=== PATIENT | male | born 1970 | race Caucasian/White ===

== ENCOUNTER 2019-05-31 04:00 | Emergency (ER) | payer OTHER, SELFPAY ==
[~2019-05-31] VITALS: Ht 177.8 cm; Wt 93.2 kg
[2019-05-31 04:04] VITALS: BP 148/94
[2019-05-31] MEDS ORDERED: ATOR20TA PO (04:09)
[2019-05-31] MEDS ORDERED: LOSA50TA14 PO (04:09)
[2019-05-31] MEDS ORDERED: ALBUTEROL MDI (04:09)
[2019-05-31] MEDS ORDERED: CEFTRIAXONE 250 MG IM ONE (06:00)
[2019-05-31] MEDS ORDERED: AZITHROMYCIN 500 MG TABLET PO ONE (06:00)
[2019-05-31] MEDS ORDERED: KETOROLAC 30 MG/1 ML IM ONE (06:30)
[2019-05-31] MEDS ORDERED: KETOROLAC 30 MG/1 ML ONE (06:31)
--- NOTE | 2019-05-31 06:46 | NUR ---
Recieved report from STEPHEN Cast. All questions answered. Assuming care of pt at this time.
--- NOTE | 2019-05-31 07:03 | NUR ---
Patient given discharge instructions and they have confirmed that they understand the instructions. Patient ambulatory with steady gait. NADN. No obvious defecits observed. Pt left with d/c paper work, prescription, and all personal belongings.
== END 2019-05-31 07:05 | disposition home or self-care (01) ==
LOC: ED 04:58
DX: S20.212A Contusion of left front wall of thorax, initial encounter (principal); I10 Essential (primary) hypertension; E78.00 Pure hypercholesterolemia, unspecified; J44.9 Chronic obstructive pulmonary disease, unspecified; F17.210 Nicotine dependence, cigarettes, uncomplicated; Z90.49 Acquired absence of other specified parts of digestive tract; W01.0XXA Fall on same level from slipping, tripping and stumbling without subsequent striking against object, initial encounter; Y93.89 Activity, other specified; Y92.89 Other specified places as the place of occurrence of the external cause; Y99.8 Other external cause status
CPT/HCPCS: 71046; 93005; 96372; 99283; J1885

== ENCOUNTER 2021-01-10 09:55 | Emergency (ER) | payer MEDICAID, OTHER ==
[~2021-01-10] VITALS: Ht 177.8 cm; Wt 83.9 kg
[~2021-01-10 09:55] MED LIST: ALBUTEROL MDI; ATOR20TA PO; LOSA50TA14 PO
--- NOTE | 2021-01-10 10:36 | NUR ---
PT REPORTS HE WAS DX WITH LIVER CIRRHOSIS IN OCTOBER OF THIS YEAR AND HAS HAD TO GET [facility] SINCE THEN. REPORTS HE WENT TO [facility] THIS SATURDAY FOR PARACENTESIS BUT THEY WERE UNABLE TO DO IT. SEVERELY ASCITIC, MILDLY SOB, ANXIOUS. HR 110s. DENIES OTHER MEDICAL HX. ERP AT BS NOW.
[2021-01-10] MEDS ORDERED: SODIUM CHLORIDE FLUSH 10ML SYR IVF ONE (11:00)
[2021-01-10 11:21] LABS: BASOPHILS % (AUTO) 1 % (0-1); EOSINOPHILS % (AUTO) 1 % (1-7); LYMPHOCYTES % (AUTO) 18 % (22-44); MEAN CORPUSCULAR HEMOGLOBIN 30.8 pg (27.5-34.5); MEAN CORPUSCULAR HGB CONC 34.2 g/dL (33.2-36.2); MEAN PLATELET VOLUME 6.7 fL (7.4-10.4); MONOCYTES % (AUTO) 11 % (2-9); NEUTROPHILS % (AUTO) 70 % (42-75); PLATELET COUNT 204 x10^3/uL (130-400); RED BLOOD COUNT 3.75 x10^6/uL (4.38-5.82); RED CELL DISTRIBUTION WIDTH 18.1 % (9.4-14.8)
[2021-01-10 11:23] LABS: ALANINE AMINOTRANSFERASE 35 U/L (12-78); ANION GAP 9 mmol/L (5-15); CHLORIDE 98 mmol/L (98-107)
[2021-01-10 11:24] LABS: INTERNATIONAL NORMALIZED RATIO 1.21 (0.93-1.1); PROTHROMBIN TIME 12.9 Seconds (9.6-11.5)
[2021-01-10 11:26] LABS: ALKALINE PHOSPHATASE 111 U/L (45-117); CREATININE 0.67 mg/dL (0.7-1.3); TOTAL PROTEIN 7.2 g/dL (6.4-8.2)
--- NOTE | 2021-01-10 11:49 | NUR ---
PT AMBULATED TO BR WITHOUT DIFFICULTY.
[2021-01-10] MEDS ORDERED: LIDOCAINE-MPF 1%, 5ML ONE (12:10)
--- NOTE | 2021-01-10 13:30 | NUR ---
PT AMBULATED TO BR WITHOUT DIFFICULTY. TO IR FOR PARACENTESIS VIA GURNEY NOW.
--- NOTE | 2021-01-10 14:18 | NUR ---
PT RETURNS FROM IR. Addendum: 01/10/21 at 1425 by HBENSON PT REPORTS FEELING A LOT BETTER AFTER PARACENTESIS. VSS.
[2021-01-10 15:30] VITALS: BP 110/72
--- NOTE | 2021-01-10 15:37 | NUR ---
D/C INSTRUCTIONS, MEDS & F/U APPT RV'WD WITH PT, HE VERBALIZES UNDERSTANDING. RX GIVEN X2. PT AMBULATED OUT OF ED WITHOUT DIFFICULTY.
== END 2021-01-10 15:37 | disposition home or self-care (01) ==
LOC: ED 11:36
DX: K70.31 Alcoholic cirrhosis of liver with ascites (principal); I10 Essential (primary) hypertension; E78.5 Hyperlipidemia, unspecified; J44.9 Chronic obstructive pulmonary disease, unspecified; E78.00 Pure hypercholesterolemia, unspecified; Z90.49 Acquired absence of other specified parts of digestive tract; Z88.5 Allergy status to narcotic agent
CPT/HCPCS: 36415; 49083; 80053; 85025; 85610; 99285

== ENCOUNTER 2021-01-22 22:41 | Emergency (ER) | payer MEDICAID ==
[~2021-01-22] VITALS: Ht 177.8 cm; Wt 81.1 kg
[2021-01-22 22:42] VITALS: BP 118/76
== END 2021-01-23 02:01 | disposition home or self-care (01) ==
LOC: ED 01-23 01:00
DX: R18.8 Other ascites (principal); F17.210 Nicotine dependence, cigarettes, uncomplicated; I10 Essential (primary) hypertension; E78.5 Hyperlipidemia, unspecified; J44.9 Chronic obstructive pulmonary disease, unspecified; E78.00 Pure hypercholesterolemia, unspecified; Z90.49 Acquired absence of other specified parts of digestive tract
CPT/HCPCS: 99281; 99406

== ENCOUNTER 2021-01-23 18:48 | Emergency (ER) | payer MEDICAID ==
[~2021-01-23] VITALS: Ht 177.8 cm; Wt 81.0 kg
--- NOTE | 2021-01-23 19:00 | NUR ---
Report received from STEPHEN Deng. This Rn to assume care.
--- NOTE | 2021-01-23 19:14 | NUR ---
PT IN HOSPITAL GOWN, ALL CLOTHING REMOVED. VITALS MONITORS APPLIED. REPORT TO ARELI
[2021-01-23] MEDS ORDERED: ALBUMIN HUMAN 25% 100 ML IV ONE (19:30)
[2021-01-23] MEDS ORDERED: LIDOCAINE-MPF 1%, 5ML ONE (19:50)
--- NOTE | 2021-01-23 19:50 | NUR ---
Patient to IR for paracentesis.
--- NOTE | 2021-01-23 21:08 | NUR ---
Patient returned from IR.
[2021-01-23 21:12] VITALS: BP 121/75
--- NOTE | 2021-01-23 21:13 | NUR ---
Patient states he is feeling much better after the paracentesis.
--- NOTE | 2021-01-23 21:45 | NUR ---
Patient tbdc s/p completion of albumin.
--- NOTE | 2021-01-23 22:15 | NUR ---
Albumin complete. Discharge instructions given. All questions and concerns addressed. Patient ambulatory with a steady gait. Belongings with patient.
== END 2021-01-23 22:33 | disposition home or self-care (01) ==
LOC: ED 22:10
DX: K70.31 Alcoholic cirrhosis of liver with ascites (principal); R10.84 Generalized abdominal pain; I10 Essential (primary) hypertension; E78.5 Hyperlipidemia, unspecified; E78.00 Pure hypercholesterolemia, unspecified; J44.9 Chronic obstructive pulmonary disease, unspecified; F17.200 Nicotine dependence, unspecified, uncomplicated; Z90.49 Acquired absence of other specified parts of digestive tract
CPT/HCPCS: 49083; 88112; 88305; 96365; 99285; P9047

== ENCOUNTER 2021-02-13 11:28 | Emergency (ER) | payer MEDICAID ==
[~2021-02-13] VITALS: Ht 179.1 cm; Wt 78.5 kg
--- NOTE | 2021-02-13 11:37 | NUR ---
truck unloader: pt drinking fluids in triage, advised to be NPO
--- NOTE | 2021-02-13 12:29 | NUR ---
BIOPHYSICS SCIENTIST: PT TO ROOM FROM LOBBY
--- NOTE | 2021-02-13 12:30 | NUR ---
Sergo bajwa in [facility] - 02/13/21 at 1231 by BARRY GIS WEB DEVELOPER: PT TO ROOM FROM [place]
--- NOTE | 2021-02-13 12:36 | NUR ---
PT PRESENTS TO ED WITH REQUEST FOR PARACENTESIS, PT HAS CHRONIC ASCITIES D/T ALCOHOLISM WITH WEEKLY PARACENTESIS REQUIREMENTS. PT HAS OUTPATIENT PARACENTESIS STANDING ORDERS "BUT IT DOESN'T START YET." PT A&O, RESPS EVEN AND UNLABORED, NO COMPLAINT AT THIS TIME. PT DRESSED IN GOWN, AWAITING MD AND ORDERS.
[2021-02-13] MEDS ORDERED: SODIUM CHLORIDE FLUSH 10ML SYR IVF ONE (13:00)
[2021-02-13 13:14] LABS: BASOPHILS % (AUTO) 1 % (0-1); EOSINOPHILS % (AUTO) 2 % (1-7); LYMPHOCYTES % (AUTO) 19 % (22-44); MEAN CORPUSCULAR HEMOGLOBIN 29.2 pg (27.5-34.5); MEAN CORPUSCULAR HGB CONC 33.8 g/dL (33.2-36.2); MEAN PLATELET VOLUME 6.2 fL (7.4-10.4); MONOCYTES % (AUTO) 12 % (2-9); NEUTROPHILS % (AUTO) 67 % (42-75); PLATELET COUNT 149 x10^3/uL (130-400); RED BLOOD COUNT 4.02 x10^6/uL (4.38-5.82); RED CELL DISTRIBUTION WIDTH 19.2 % (9.4-14.8)
[2021-02-13 13:31] LABS: ALBUMIN 2.5 g/dL (3.4-5.0); ANION GAP 6 mmol/L (5-15); CALCIUM 8.8 mg/dL (8.5-10.1); CHLORIDE 98 mmol/L (98-107)
[2021-02-13 13:34] LABS: ALANINE AMINOTRANSFERASE 70 U/L (12-78); ALKALINE PHOSPHATASE 105 U/L (45-117); BILIRUBIN,TOTAL 1.2 mg/dL (0.2-1.0); CREATININE 0.73 mg/dL (0.7-1.3); TOTAL PROTEIN 6.3 g/dL (6.4-8.2)
[2021-02-13] MEDS ORDERED: LIDOCAINE 1%, 10ML ONE (14:10)
--- NOTE | 2021-02-13 14:59 | NUR ---
pt in IR, report given to STEPHEN Devlin who is assuming care.
[2021-02-13 15:50] VITALS: BP 106/65
--- NOTE | 2021-02-13 15:52 | NUR ---
PT RTD FROM RADIOLOGY. PT RPTS 750ML WAS DRAINED IN PROCEDURE. PT DENIES PAIN, RUQ ABD STAB SITE WITH GAUZE DRESSING CDI. VSS. CHART UP FOR RECHECK, PT AWARE. CALL LIGHT W/I REACH
--- NOTE | 2021-02-13 16:59 | NUR ---
Patient/Caregiver given discharge instructions and they have confirmed that they understand the instructions. Patient ambulatory with steady gait. NAD, all questions answered appropriately, denies additional needs at this time. No personal belongings left in room after discharge.
== END 2021-02-13 17:00 | disposition home or self-care (01) ==
LOC: ED 14:09
DX: K70.31 Alcoholic cirrhosis of liver with ascites (principal); E87.1 Hypo-osmolality and hyponatremia; R10.9 Unspecified abdominal pain; F17.200 Nicotine dependence, unspecified, uncomplicated
CPT/HCPCS: 36415; 49083; 80053; 85025; 99285; J3490

== ENCOUNTER 2021-02-21 18:44 | Emergency (ER) | payer MEDICAID ==
[~2021-02-21] VITALS: Ht 180.3 cm; Wt 68.2 kg
[2021-02-21] MEDS ORDERED: ONDANSETRON 2MG/ML, 2ML IVPush ONE (19:00)
[2021-02-21] MEDS ORDERED: HYDROmorphone 1 MG/ML, 1ML INJ IV ONE (19:00)
[2021-02-21] MEDS ORDERED: SODIUM CHLORIDE FLUSH 10ML SYR IVF ONE (19:00)
[2021-02-21] MEDS ORDERED: HYDROmorphone 2 MG/ML, 1ML ONE (19:08)
[2021-02-21] MEDS ORDERED: ONDANSETRON 2MG/ML, 2ML ONE (19:08)
[2021-02-21 19:39] LABS: BASOPHILS % (AUTO) 0 % (0-1); EOSINOPHILS % (AUTO) 1 % (1-7); LYMPHOCYTES % (AUTO) 16 % (22-44); MEAN CORPUSCULAR HEMOGLOBIN 28.9 pg (27.5-34.5); MEAN CORPUSCULAR HGB CONC 33.6 g/dL (33.2-36.2); MEAN PLATELET VOLUME 6.4 fL (7.4-10.4); MONOCYTES % (AUTO) 12 % (2-9); NEUTROPHILS % (AUTO) 71 % (42-75); PLATELET COUNT 149 x10^3/uL (130-400); RED BLOOD COUNT 4.02 x10^6/uL (4.38-5.82); RED CELL DISTRIBUTION WIDTH 19.1 % (9.4-14.8)
[2021-02-21 19:49] LABS: ALANINE AMINOTRANSFERASE 67 U/L (12-78); ANION GAP 8 mmol/L (5-15); CALCIUM 8.6 mg/dL (8.5-10.1); CHLORIDE 101 mmol/L (98-107); CREATININE 0.95 mg/dL (0.7-1.3)
[2021-02-21 19:51] LABS: ALKALINE PHOSPHATASE 87 U/L (45-117); BILIRUBIN,TOTAL 1.1 mg/dL (0.2-1.0); TOTAL PROTEIN 6.6 g/dL (6.4-8.2)
[2021-02-21] MEDS ORDERED: OMNIPAQUE 350 MG/ML, 100ML BOTTLE ONE (20:30)
[2021-02-21] MEDS ORDERED: SODIUM CHLORIDE 0.9% 1,000ML IVBOLUS ONE (21:00)
[2021-02-21 22:18] VITALS: BP 98/59
[2021-02-21 22:31] LABS: MICROSCOPIC NOT IND
[2021-02-21 22:48] LABS: INTERNATIONAL NORMALIZED RATIO 1.17 (0.93-1.1); PROTHROMBIN TIME 12.4 Seconds (9.6-11.5)
== END 2021-02-22 05:04 | disposition home or self-care (01) ==
LOC: ED 18:52 → EDIP 21:20 → UNDOADMIN 21:20 → ED 02-22 05:04
DX: K42.0 Umbilical hernia with obstruction, without gangrene (principal); K70.31 Alcoholic cirrhosis of liver with ascites; I10 Essential (primary) hypertension; E11.9 Type 2 diabetes mellitus without complications; E78.00 Pure hypercholesterolemia, unspecified; F17.200 Nicotine dependence, unspecified, uncomplicated; E78.5 Hyperlipidemia, unspecified; Z90.49 Acquired absence of other specified parts of digestive tract
CPT/HCPCS: 36415; 74177; 80053; 81003; 83605; 83690; 85025; 85610; 96361; 96374; 96375; 99285; J1170; J2405; J7030; Q9967

== ENCOUNTER 2021-03-06 09:20 | Emergency (ER) | payer MEDICAID ==
[~2021-03-06] VITALS: Ht 177.8 cm; Wt 80.0 kg
[2021-03-06] MEDS ORDERED: SPIR25TA5 PO (09:50)
[2021-03-06] MEDS ORDERED: HYDR-2995 PO (09:50)
[2021-03-06] MEDS ORDERED: LACT10SO28 PO (09:50)
[2021-03-06] MEDS ORDERED: GABA600T7 PO (09:50)
[2021-03-06] MEDS ORDERED: LIDOCAINE 1%, 10ML ONE (10:09)
--- NOTE | 2021-03-06 10:18 | NUR ---
pt to paracentesis. as
--- NOTE | 2021-03-06 10:55 | NUR ---
REPORT FROM KIKO MITCHELL. PT IN IR AT THIS TIME.
--- NOTE | 2021-03-06 11:06 | NUR ---
PT AMBULATORY TO BATHROOM.
[2021-03-06 11:10] VITALS: BP 103/56
== END 2021-03-06 11:49 | disposition home or self-care (01) ==
LOC: ED 09:22
DX: K70.31 Alcoholic cirrhosis of liver with ascites (principal); R10.84 Generalized abdominal pain; I10 Essential (primary) hypertension; E78.5 Hyperlipidemia, unspecified; J44.9 Chronic obstructive pulmonary disease, unspecified; Z90.49 Acquired absence of other specified parts of digestive tract
CPT/HCPCS: 49083; 99285; J3490

== ENCOUNTER 2021-03-10 07:29 | Emergency (ER) | payer MEDICAID ==
[~2021-03-10] VITALS: Ht 177.8 cm; Wt 78.0 kg
[~2021-03-10 07:29] MED LIST changes: +GABA600T7 PO; +HYDR-2995 PO; +LACT10SO28 PO; +SPIR25TA5 PO
--- NOTE | 2021-03-10 07:33 | NUR ---
CALLED FOR TRIAGE, NO ANSWER
--- NOTE | 2021-03-10 08:51 | NUR ---
SHARED SERVICES MANAGER: PT TO ROOM FROM LOBBY
--- NOTE | 2021-03-10 09:00 | NUR ---
ASSUMED CARE OF PT AT THIS TIME FROM LOBBY. AMBULATORY TO ROOM WITH STEADY GAIT. 51 Y/O M PRESENTS STATING "I NEED ANOTHER PARACENTESIS, LAST ONE WAS ON SATURDAY, I CAN'T WAIT FOR MY APPT. MY STOMACH IS FIRM AND UNCOMFORTABLE, A LITTLE HARD TO BREATH, BUT NOT BAD YET, THIS HAPPENS EACH TIME, ONCE THE FLUID IS OFF, I FEEL GOOD." JULEE QUIÑONES AT BEDSIDE FOR EVALUATION. RATES PAIN 02/21. ASSESSMENT COMPLETED. CONT PULSE OX, BP MONITORS APPLIED. VSS. CALL LIGHT IN REACH. FALL PRECAUTIONS IN PLACE. A&XO4. PT TO GO IR FOR PARACENTESIS.
[2021-03-10] MEDS ORDERED: LIDOCAINE 1%, 10ML ONE (09:03)
--- NOTE | 2021-03-10 09:32 | NUR ---
PT IN IR
--- NOTE | 2021-03-10 10:00 | NUR ---
PT REMAINS IN IR
--- NOTE | 2021-03-10 10:32 | NUR ---
PT BACK FROM IR, DRESSING CDI TO ABD. ABD SOFT NON-DISTENDED, LESS FIRM. PT STATES "FEEL BETTER, SORE A LITTLE, NO PAIN LIKE IT WAS, I CAN BREATH AGAIN NO PROBLEM." VSS. CALL LIGHT IN REACH. FALL PRECAUTIONS IN PLACE. PT UP FOR RECHECK.
--- NOTE | 2021-03-10 10:44 | NUR ---
DR. DURAN AT BEDSIDE FOR RECHECK
[2021-03-10 10:58] VITALS: BP 111/64
== END 2021-03-10 11:01 | disposition home or self-care (01) ==
LOC: ED 10:46
DX: K70.31 Alcoholic cirrhosis of liver with ascites (principal); E78.5 Hyperlipidemia, unspecified; J44.9 Chronic obstructive pulmonary disease, unspecified; E78.00 Pure hypercholesterolemia, unspecified
CPT/HCPCS: 49083; 99285; J3490

== ENCOUNTER 2021-03-15 08:15 | Emergency (ER) | payer MEDICAID ==
[~2021-03-15] VITALS: Ht 177.8 cm; Wt 82.0 kg
[2021-03-15 08:21] VITALS: BP 105/72
[2021-03-15] MEDS ORDERED: LIDOCAINE 1%, 10ML ONE (09:11)
--- NOTE | 2021-03-15 09:22 | NUR ---
PT GOING TO IR
--- NOTE | 2021-03-15 10:07 | NUR ---
PT BACK FROM IR. CHART UP FOR RECHECK
== END 2021-03-15 11:01 | disposition home or self-care (01) ==
LOC: ED 08:43
DX: K70.31 Alcoholic cirrhosis of liver with ascites (principal); I10 Essential (primary) hypertension; E78.5 Hyperlipidemia, unspecified; J44.9 Chronic obstructive pulmonary disease, unspecified
CPT/HCPCS: 49083; 99285; J3490

== ENCOUNTER 2021-03-21 08:08 | Emergency (ER) | payer MEDICAID ==
[~2021-03-21] VITALS: Ht 177.8 cm; Wt 80.9 kg
--- NOTE | 2021-03-21 09:43 | NUR ---
twister hand: Pt ambulatory to room from lobby at this time
--- NOTE | 2021-03-21 09:54 | NUR ---
PT BIB SELF VIA POV. PER PT HE IS HERE FOR A PARACENTESIS, PT STATES HE HAS ONE SCHEDULED FOR SATURDAY BUT CANNOT WAIT THAT LONG. PT RESTING IN [facility], MONITORING IN PLACE, KAROL AT THIS TIME, AMANDA.
[2021-03-21 10:42] LABS: BASOPHILS % (AUTO) 1 % (0-1); EOSINOPHILS % (AUTO) 3 % (1-7); LYMPHOCYTES % (AUTO) 15 % (22-44); MEAN CORPUSCULAR HEMOGLOBIN 28.5 pg (27.5-34.5); MEAN CORPUSCULAR HGB CONC 33.5 g/dL (33.2-36.2); MEAN PLATELET VOLUME 6.5 fL (7.4-10.4); MONOCYTES % (AUTO) 12 % (2-9); NEUTROPHILS % (AUTO) 70 % (42-75); PLATELET COUNT 170 x10^3/uL (130-400); RED BLOOD COUNT 4.42 x10^6/uL (4.38-5.82); RED CELL DISTRIBUTION WIDTH 18.7 % (9.4-14.8)
[2021-03-21 10:43] LABS: ALBUMIN 2.6 g/dL (3.4-5.0); ANION GAP 7 mmol/L (5-15); CALCIUM 9.4 mg/dL (8.5-10.1); CHLORIDE 100 mmol/L (98-107)
[2021-03-21 10:48] LABS: ALANINE AMINOTRANSFERASE 37 U/L (12-78); ALKALINE PHOSPHATASE 111 U/L (45-117); BILIRUBIN,TOTAL 0.8 mg/dL (0.2-1.0); CREATININE 0.85 mg/dL (0.7-1.3); TOTAL PROTEIN 6.7 g/dL (6.4-8.2)
[2021-03-21 10:51] LABS: INTERNATIONAL NORMALIZED RATIO 1.07 (0.93-1.1); PROTHROMBIN TIME 11.4 Seconds (9.6-11.5)
[2021-03-21] MEDS ORDERED: ALBUMIN HUMAN 25% 100 ML IV ONE (11:00)
[2021-03-21] MEDS ORDERED: LIDOCAINE 1%, 10ML ONE (12:31)
--- NOTE | 2021-03-21 12:36 | NUR ---
THIS RN CALLED IR, PER SARATH THEY WILL BE COMING TO GET PT IN APPROX 30 MINUTES.
--- NOTE | 2021-03-21 13:55 | NUR ---
PER IR APPROX 6L TAKEN DURING PARACENTESIS.
[2021-03-21 13:56] VITALS: BP 108/62
== END 2021-03-21 14:35 | disposition home or self-care (01) ==
LOC: ED 08:32
DX: K70.31 Alcoholic cirrhosis of liver with ascites (principal); E78.5 Hyperlipidemia, unspecified; E78.00 Pure hypercholesterolemia, unspecified; J44.9 Chronic obstructive pulmonary disease, unspecified; F17.200 Nicotine dependence, unspecified, uncomplicated; Z90.49 Acquired absence of other specified parts of digestive tract
CPT/HCPCS: 36415; 49083; 80053; 85025; 85610; 96365; 99285; J3490; P9047

== ENCOUNTER 2021-03-28 13:16 | Outpatient (CLI) | payer MEDICAID ==
[2021-03-28] MEDS ORDERED: LIDOCAINE 1%, 10ML ONE (13:24)
== END 2021-03-28 23:59 | disposition home or self-care (01) ==
LOC: RAD 13:16
PROVIDERS: ATTEND Internal Medicine
DX: K70.31 Alcoholic cirrhosis of liver with ascites (principal)
CPT/HCPCS: 49083; J3490

== ENCOUNTER 2021-04-04 13:31 | Outpatient (CLI) | payer MEDICAID ==
[2021-04-04] MEDS ORDERED: LIDOCAINE 1%, 10ML ONE (13:39)
== END 2021-04-04 23:59 | disposition home or self-care (01) ==
LOC: RAD 13:31
PROVIDERS: ATTEND Internal Medicine
DX: K70.31 Alcoholic cirrhosis of liver with ascites (principal)
CPT/HCPCS: 49083; J3490